=== PATIENT | female | born 1935 | race Caucasian/White ===

== ENCOUNTER → 2023-05-17 12:07 | Outpatient (REF) | payer MEDICARE, OTHER, SELFPAY | LOC: HWRAD 12:07 | PROVIDERS: ATTENDING PHYSICIAN Nurse Practitioner Family; FAMILY PHYSICIAN Internal Medicine | DX: Z12.31 Encounter for screening mammogram for malignant neoplasm of breast (principal); Z78.0 Asymptomatic menopausal state | CPT/HCPCS: 77063; 77067; 77080 ==

== ENCOUNTER → 2023-05-27 08:56 | Outpatient (REF) | payer MEDICARE, OTHER, SELFPAY | LOC: RAD 08:56 | PROVIDERS: ATTENDING PHYSICIAN Surgery Vascular Surgery; FAMILY PHYSICIAN Internal Medicine | DX: I71.40 Abdominal aortic aneurysm, without rupture, unspecified (principal) | CPT/HCPCS: 76770 ==

== ENCOUNTER → 2023-11-17 11:08 | Outpatient (REF) | payer MEDICARE, OTHER, SELFPAY | LOC: RAD 11:08 | PROVIDERS: ATTENDING PHYSICIAN Surgery Vascular Surgery; FAMILY PHYSICIAN Internal Medicine | DX: I71.40 Abdominal aortic aneurysm, without rupture, unspecified (principal) | CPT/HCPCS: 74174; Q9967 ==

== ENCOUNTER → 2024-01-25 12:44 | Outpatient (REF) | payer MEDICARE, OTHER, SELFPAY | LOC: RCS 12:44 | PROVIDERS: ATTENDING PHYSICIAN Physician Assistant Medical; FAMILY PHYSICIAN Internal Medicine | DX: R55 Syncope and collapse (principal); I35.0 Nonrheumatic aortic (valve) stenosis | CPT/HCPCS: 93306 ==

== ENCOUNTER 2024-04-24 02:25 | Emergency (ER) | payer MEDICARE, OTHER, SELFPAY ==
[2024-04-24] VITALS (12 sets, daily range): BP systolic 155–234; BP diastolic 74–107; BMI 25.5
[2024-04-24 02:58] LABS: % Basophils 0.7 % (0-2); % Eosinophils 2.4 % (0-6); % Immature Granulocytes 0.2 % (0-0.5); % Lymphocytes 31.6 % (20.5-51.1); % Monocytes 8.4 % (1.7-9.3); % Neutrophils 56.7 % (42.2-75.2); Absolute Eosinophils 0.1 10^3/uL (0-0.7); Absolute Lymphocytes 1.4 10^3/uL (1.2-3.4); Absolute Monocytes 0.4 10^3/uL (0.1-0.6); Absolute Neutrophils 2.6 10^3/uL (1.4-6.5); Hemoglobin 12.9 g/dL (12.0-16.0); Mean Corp Hgb Conc. 33.1 g/dL (33.0-37.0); Mean Corpuscular Hgb 30.1 pg (27.0-31.0); Mean Corpuscular Volume 91.1 fL (81.0-99.0); Mean Platelet Volume 10.6 fL (7.4-10.4); Nucleated Red Blood Cells % 0 %; Platelet Count 149 10^3/uL (130-400); Red Blood Cell Count 4.28 10^6/uL (4.20-5.40); Red Cell Dist. Width 13.6 % (11.5-14.5); White Blood Cell Count 4.5 10^3/uL (4.8-10.8)
[2024-04-24 03:17] LABS: Albumin 3.5 g/dl (3.5-5.0)
[2024-04-24 03:31] LABS: Troponin I < 0.012 ng/ml
[2024-04-24 03:47] LABS: ALT (SGPT) 33 U/L (0-35); AST (SGOT) 36 U/L (14-36); Alkaline Phosphatase 76 U/L (38-126); Blood Urea Nitrogen 25 mg/dl (7-17); Calcium 9.8 mg/dl (8.4-10.2); Carbon Dioxide 30 mmol/L (22-30); Chloride 102 mmol/L (98-107); Estimated Creatinine Clearance 35 ml/min; Glucose 150 mg/dl (70-99); Potassium 4.5 mmol/L (3.5-5.1); Sodium 138 mmol/L (135-145); Total Bilirubin 0.7 mg/dl (0.2-1.3); Total Protein 6.5 g/dl (6.3-8.2); eGFR > 60.00
--- NOTE | 2024-04-24 06:23 | ED.GENMED ---
History of Present Illness
General
Chief Complaint: Cardiac Symptoms
Source: patient, records and spouse
Exam Limitations: none
Time Seen by Provider: 04/24/24 06:02
Nursing documentation reviewed up to this point in time: agreed with
History of Present Illness
History of Present Illness:
Very pleasant 88-year-old female CAD, abdominal aneurysm repair, was on the phone with her grandson, felt some tunnel vision and then some pain under her sternum reminiscent of her ACS requiring stents in 2018, lasted just a minute or so no nausea
vomiting or diaphoresis felt a bit weak through the evening, now is feeling fine no abdominal pain no back pain no hematuria no dysuria, she did have a syncopal event in the past, seen at [facility], no alcohol her symptoms last night
did start after eating pizza
Past History
Past History
ED Past Medical History: Arrthythmia (Paroxysmal fibrillation), CAD, HTN and Other (CAD with stents)
ED Past Surgical History: Cardiac (PTCA with stent first OM June 2017.), Cholecystectomy, Orthopedic, Tonsilectomy and Other (AAA repair)
Social History
Tobacco: Non-smoker
Alcohol: None
Drug: None
Personal:
Living: with family
Employment: Retired
Family History
Family History: CAD (Mother and father with [place])
Review of Systems
Review of Systems
All Other Systems: Not applicable
Constitutional: Denies fever or fatigue
EENT: Reports no symptoms
Respiratory: Reports no symptoms
Cardiac: Reports chest pain
ABD/GI: Reports no symptoms
: Reports no symptoms
Musculoskeletal: Reports no symptoms
Skin: Reports no symptoms
Neurological: Reports no symptoms
Phy Exam
Physical Exam
Physical Exam:
Physical Exam
General: no apparent distress, not acutely ill
Neck: No jaundice
Heart: s1/s2 regular rate and rhythm, no murmur. equal radial pulses.
Lungs: no acute respiratory distress. clear bilaterally
Abdomen: nontender
Neuro: alert and oriented. no focal neurological deficits
Skin: no rash
Psychiatric: well kept. interactive and cooperative
Extremities: no edema. no calf tenderness
Scores
Heart Score for Chest Pain Patients
STEMI patient?: No
History: Slightly or Non-Suspicious
ECG: Normal
Age: >/= 65 years
Risk Factors: >/= 3 Risk Factors or History of CAD
Troponin: </= Normal Limit
Heart Score for Chest Pain Patients: 4
Heart Score Risk: 20.3% MACE over next 6 weeks
Course
Orders/Labs/Results
Orders:
Orders
04/24/24 02:30
Electrocardiogram (*1) Urgent
Reason for Study: Chest Pain
EKG- Treatment ONCE
04/24/24 02:49
Complete Blood Count/With Diff Urgent
Comprehensive Metabolic Panel Urgent
Lipase Urgent
Comment: ADD ON
Troponin I Urgent
04/24/24 06:21
Add On- LAB Urgent
Tests Added?: lipase
Electrocardiogram (*1) Urgent
Reason for Study: Shortness of Breath
EKG- Treatment ONCE
04/24/24 06:57
Troponin I Urgent
Abnormal Lab Results
04/24/24
02:49
WBC 4.5 L 10^3/uL
(4.8-10.8)
MPV 10.6 H fL
(7.4-10.4)
BUN 25 H mg/dl
(7-17)
Glucose 150 H mg/dl
(70-99)
Lipase 308 H U/L
(23-300)
04/24/24 02:49
04/24/24 02:49
Vital Signs
Initial and Last Documented VS:
Initial Vital Signs
Temp Pulse Resp BP Pulse Ox
97.8 F 74 20 215/107 98
04/24/24 02:26 04/24/24 02:26 04/24/24 02:26 04/24/24 02:26 04/24/24 02:26
Last Documented Vital Signs
Temp Pulse Resp BP Pulse Ox
97.8 F 75 12 165/92 93
04/24/24 02:26 04/24/24 05:30 04/24/24 05:30 04/24/24 05:30 04/24/24 05:30
MDM/Problems Addressed
Differential Diagnosis Includes:
ACS reflux pancreatitis anxiety arrhythmia
MDM/Problems Addressed:
Pain under her sternum
Chronic conditions affecting care: CAD and Previous abdomnial surgery
Acute Exacerbation and/or Progression of Chronic Illness: CAD and Previous abdomnial surgery
*Pulse Oximetry
Patient hypoxic: no
*EKG
Interpreted by ED Provider?: Yes
Interpretation: normal
Comparison EKG: no comparison EKG present
Heart Rate: 78
Rate: normal
Rhythm: sinus
Ischemia: no ischemia
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
Rate: normal
Interpretation: normal
Heart Rate: 78
Rhythm: sinus
*Critical Care Note
Total Time (30-74mins, 75-104mins- exclusive of procedures): Not Applicable
Update Note
Update Note:
750 2 AM-second troponin noted patient comfortable, lipase at top normal, do not believe this represents acute pancreatitis
ED Attending Note
-
Portions of this chart may have been created with voice recognition software.� Occasional wrong word or��sound alike� substitutions may have occurred due to the inherent limitations of voice recognition software.
Discharge Plan
Departure
Patient Disposition: Home (Routine Discharge)
Date of Disposition: 04/24/24
Time of Disposition: 07:53
Patient with high blood pressure during this ER visit?: No
Condition: Good
Discharge Problem:
Chest pain, Near syncope
Instructions: Chest Pain (DC), Near Fainting (DC), Chest Pain DCA Follow Up
Prescriptions:
No Action
latanoprost 1 DROP drops
1 drp RIGHT EYE HS
Patient Comments:
R eye
losartan 25 MG tablet
50 mg PO BID
brimonidine 1 DROP drops
1 drp RIGHT EYE BID
coenzyme Q10 50 MG tablet,chewable
100 mg PO DAILY
rivaroxaban [Xarelto] 20 MG tablet
15 mg PO QPM
Patient Comments:
with dinner
metoprolol tartrate 25 MG tablet
12.5 mg PO BID
aspirin 81 MG tablet,delayed release (DR/EC)
81 mg PO DAILY
vitamin B complex 1 TAB tablet
1 tab PO DAILY
nitroglycerin 0.4 MG tablet, sublingual
0.4 mg sublingual [id number] PRN (Reason: chest pain)
rosuvastatin 20 MG tablet
40 mg PO QPM
cholecalciferol (vitamin D3) 2,000 UNITS tablet
2,000 units PO DAILY
Referrals:
Barbara Ontiveros MD [Family Provider] -
Montana Britton MD [Active] - Next open appointment
Activity Restrictions/Additional Instructions:
[place] diet nothing fatty or spicy
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
Interventions
Interventions:
*Risk Screen - Suicide Last Done: 04/24/24 02:26
*Neglect/Abuse Screening Last Done: 04/24/24 02:26
ED- Pulmonary Assessment Last Done: 04/24/24 03:13
ED- Cardiac Assessment Last Done: 04/24/24 03:13
Discharge Date and Time
Print Language: THAI
[2024-04-24 06:53] LABS: Lipase 308 U/L (23-300)
[2024-04-24 07:31] LABS: Troponin I < 0.012 ng/ml
== END 2024-04-24 08:00 | disposition home or self-care (01) ==
LOC: EMR 02:25
PROVIDERS: Emergency Medicine; EMERGENCY PHYSICIAN Emergency Medicine; FAMILY PHYSICIAN Internal Medicine
DX: R55 Syncope and collapse (principal); R07.89 Other chest pain; I25.10 Atherosclerotic heart disease of native coronary artery without angina pectoris; I48.0 Paroxysmal atrial fibrillation; I10 Essential (primary) hypertension; E78.5 Hyperlipidemia, unspecified; M19.90 Unspecified osteoarthritis, unspecified site; M81.0 Age-related osteoporosis without current pathological fracture; H40.9 Unspecified glaucoma; Z79.01 Long term (current) use of anticoagulants; Z95.5 Presence of coronary angioplasty implant and graft; Z96.653 Presence of artificial knee joint, bilateral; Z85.828 Personal history of other malignant neoplasm of skin; Z87.01 Personal history of pneumonia (recurrent); Z86.16 Personal history of COVID-19; Z90.49 Acquired absence of other specified parts of digestive tract; Z88.1 Allergy status to other antibiotic agents; Z88.0 Allergy status to penicillin; Z88.2 Allergy status to sulfonamides; Z88.8 Allergy status to other drugs, medicaments and biological substances
CPT/HCPCS: 99284; 80053; 83690; 84484; 85025; 93005

== ENCOUNTER → 2024-06-05 09:35 | Outpatient (REF) | payer MEDICARE, OTHER, SELFPAY | LOC: HWRAD 09:35 | PROVIDERS: ATTENDING PHYSICIAN Surgery Vascular Surgery; FAMILY PHYSICIAN Internal Medicine | DX: I71.40 Abdominal aortic aneurysm, without rupture, unspecified (principal) | CPT/HCPCS: 74176 ==

== ENCOUNTER 2024-10-24 16:12 | Emergency (ER) | payer MEDICARE, OTHER, SELFPAY ==
[2024-10-24 16:16] VITALS: BP 166/91
[2024-10-24 16:32] LABS: Hematocrit 38.0 % (37.0-47.0); Hemoglobin 12.5 g/dL (12.0-16.0); Mean Corp Hgb Conc. 32.9 g/dL (33.0-37.0); Mean Corpuscular Volume 89.4 fL (81.0-99.0); Nucleated Red Blood Cells % 0 %; Platelet Count 156 10^3/uL (130-400); Red Cell Dist. Width 13.5 % (11.5-14.5)
[2024-10-24 16:51] LABS: ALT (SGPT) 28 U/L (0-35); AST (SGOT) 33 U/L (14-36); Albumin 3.7 g/dl (3.5-5.0); Alkaline Phosphatase 72 U/L (38-126); Blood Urea Nitrogen 23 mg/dl (7-17); Calcium 9.6 mg/dl (8.4-10.2); Carbon Dioxide 32 mmol/L (22-30); Chloride 102 mmol/L (98-107); Glucose 166 mg/dl (70-99); Potassium 4.6 mmol/L (3.5-5.1); Sodium 137 mmol/L (135-145); Total Protein 6.7 g/dl (6.3-8.2); eGFR > 60.00
[2024-10-24 16:57] LABS: Troponin I < 0.012 ng/ml
[2024-10-24 17:50] VITALS: BMI 24.7
--- NOTE | 2024-10-24 17:53 | ED.GENMED ---
History of Present Illness
General
Chief Complaint: Cardiac Symptoms
Source: patient
Exam Limitations: none
Time Seen by Provider: 10/24/24 17:36
Nursing documentation reviewed up to this point in time: agreed with
History of Present Illness
History of Present Illness:
89-year-old female with past medical history of hypertension hyperlipidemia, CAD status post stent (follows with Dr. Britton for cardiology) who presents to the emergency room with her for evaluation of chest discomfort. Patient reports a
vague suprasternal discomfort (she points essentially to her sternal notch) that was intermittent over the past few days but has been constant essentially all day today. She has not noticed any clear trigger for her symptoms�in fact she says that
she walked 2-1/2 miles today and did not have any change in her symptoms. She has not had any associated symptoms such as shortness of breath, nausea, vomiting. No recent illness. She says that she had similar vague discomfort in the throat/upper
chest prior to stent placement in 2018 and so she decided to come to the ER for assessment. She says she did try some nitroglycerin and she thinks had some transient relief but symptoms returned. Overall she describes symptoms as mild but was
mainly concerned that it could be her heart. She does admit that her diet has not been the healthiest recently.
Past History
Past History
ED Past Medical History: Arrthythmia (Paroxysmal fibrillation), CAD, HTN and Other (CAD with stents)
ED Past Surgical History: Cardiac (PTCA with stent first OM June 2017.), Cholecystectomy, Orthopedic, Tonsilectomy and Other (AAA repair)
Social History
Tobacco: Non-smoker
Alcohol: None
Drug: None
Personal:
Living: with family
Employment: Retired
Family History
Family History: CAD (Mother and father with [place])
Review of Systems
Review of Systems
All Other Systems: ROS reviewed and negative except as documented in HPI and ROS
Constitutional: Denies fever or chills
Respiratory: Denies cough or trouble breathing
Cardiac: Reports chest pain
ABD/GI: Denies abdominal pain, nausea or vomiting
: Denies flank pain
Musculoskeletal: Denies edema, neck pain or back pain
Neurological: Denies dizzy or headache
Phy Exam
Physical Exam
Physical Exam:
General: Awake, alert, oriented x3; no acute distress
Head: Normocephalic, atraumatic
Eyes: Conjunctiva normal, sclera anicteric
Throat: Airway intact, handling secretions
Neck: Trachea midline, supple without meningismus
Lungs: Clear to auscultation bilaterally, no wheezing, rales, rhonchi
Heart: Regular rate and rhythm, no murmurs, gallops, or rubs
Abd: Soft, non distended, nontender
Neuro: Grossly intact
Skin: No rash in area of concern
Extremities: No edema in extremities, equal pulses in all extremities
Scores
Heart Failure Risk
Heart Failure Risk Score: Not Applicable
Heart Score for Chest Pain Patients
STEMI patient?: Not applicable
Withdrawal Assessment of Alcohol
Withdrawal Assessment Completed?: Not applicable
Course
Orders/Labs/Results
Orders:
Orders
10/24/24 16:12
ECG [Electrocardiogram (*1)] Urgent
Reason for Study: Chest Pain
EKG- Treatment ONCE
10/24/24 16:24
Complete Blood Count/With Diff Urgent
Comprehensive Metabolic Panel Urgent
Troponin I Urgent
10/24/24 16:43
CR Chest - 2 Views Urgent
Comment:
Reason For Exam: chest pain
10/24/24 17:50
Mag Hydrox/Al Hydrox/Simeth [Maalox] 30 ml Phenobarb/Hyoscy/Atropine/Scop [] 10 ml Viscous Lidocaine 2% [Xylocaine Viscous Cup] 10 ml PO NOW
10/24/24 18:01
Mag Hydrox/Al Hydrox/Simeth [Maalox] 30 ml .ROUTE .STK-MED ONE
Phenobarb/Hyoscy/Atropine/Scop [] 10 ml .ROUTE .STK-MED ONE
Viscous Lidocaine 2% [Xylocaine Viscous Cup] 15 ml .ROUTE .STK-MED ONE
10/24/24 19:41
Troponin I Urgent
Abnormal Lab Results
10/24/24
16:24
WBC 4.0 L 10^3/uL
(4.8-10.8)
MCHC 32.9 L g/dL
(33.0-37.0)
Monocytes % 10.9 H %
(1.7-9.3)
Carbon Dioxide 32 H mmol/L
(22-30)
BUN 23 H mg/dl
(7-17)
Glucose 166 H mg/dl
(70-99)
10/24/24 16:24
10/24/24 16:24
Vital Signs
Initial and Last Documented VS:
Initial Vital Signs
Temp Pulse Resp BP Pulse Ox
36.7 C 76 20 166/91 98
10/24/24 16:16 10/24/24 16:16 10/24/24 16:16 10/24/24 16:16 10/24/24 16:16
Last Documented Vital Signs
Temp Pulse Resp BP Pulse Ox
36.7 C 72 24 166/91 97
10/24/24 16:16 10/24/24 18:24 10/24/24 18:24 10/24/24 16:16 10/24/24 18:26
MDM/Problems Addressed
Differential Diagnosis Includes:
ACS, GERD, anxiety, dysrhythmia
MDM/Problems Addressed:
89-year-old female with history as noted presents for evaluation of atypical chest/throat discomfort�she says that she had somewhat similar symptoms prior to stent in 2018 and was concerned it could be from her heart. Vitals were significant for
mild hypertension. Physical exam as above. EKG shows sinus rhythm with no acute ischemia no change from prior. She had lab work sent off including a CBC and a CMP which showed no clinically significant abnormalities. Initial troponin is
undetectable. Will check repeat troponin. Will check chest x-ray. Will monitor closely and reassess after the above�overall my clinical impression is that this is more likely GERD, very atypical for cardiac chest pain. Will trial green grabber.
Chest x-ray no acute disease. Repeat troponin pending. On clinical reassessment after green grabber patient reports resolution of symptoms she is feeling much better. Clinically suspect GERD, plan for discharge on PPI if repeat troponin negative.
She can follow-up with her primary doctor as an outpatient.
Repeat troponin undetectable. Patient remains well-appearing, asymptomatic on clinical reassessment. Stable for discharge will trial PPI follow-up with PCP as an outpatient. Patient very comfortable with this plan. All questions answered.
Chronic conditions affecting care:
CAD, hypertension, hyperlipidemia
Acute Exacerbation and/or Progression of Chronic Illness:
Acutely hypertensive
Acute Exacerbation and/or Progression of Chronic Illness: HTN
*Radiology
Radiology exam reviewed: preliminary read by ED provider
*Pulse Oximetry
SaO2: 98
Oxygen Mode of Delivery: Room air
Patient hypoxic: no (98%)
*EKG
Interpreted by ED Provider?: Yes
Comparison EKG: no changes
Heart Rate: 71
Rate: normal
Rhythm: sinus
Carmen: normal axis
Interval: normal interval
QRS Pattern: normal QRS
Ischemia: no ischemia (No significant change from prior)
*Critical Care Note
Total Time (30-74mins, 75-104mins- exclusive of procedures): Not Applicable
Data Reviewed
Source: patient, records and spouse
ED Attending Note
-
Portions of this chart may have been created with voice recognition software.� Occasional wrong word or��sound alike� substitutions may have occurred due to the inherent limitations of voice recognition software.
Discharge Plan
Departure
Patient Disposition: Home (Routine Discharge)
Date of Disposition: 10/24/24
Time of Disposition: 20:32
Patient with high blood pressure during this ER visit?: Yes
Discharge Problem:
Chest pain
Instructions: Chest Pain (DC), Acid reflux and GERD in adults - ED (DC)
Prescriptions:
New
pantoprazole 40 mg tablet,delayed release (DR/EC)
40 mg PO DAILY 14 Days Qty: 14 0RF
No Action
latanoprost 1 DROP drops
1 drp RIGHT EYE HS
Patient Comments:
R eye
losartan 25 MG tablet
50 mg PO BID
brimonidine 1 DROP drops
1 drp RIGHT EYE BID
coenzyme Q10 50 MG tablet,chewable
100 mg PO DAILY
rivaroxaban [Xarelto] 20 MG tablet
15 mg PO QPM
Patient Comments:
with dinner
metoprolol tartrate 25 MG tablet
12.5 mg PO BID
aspirin 81 MG tablet,delayed release (DR/EC)
81 mg PO DAILY
vitamin B complex 1 TAB tablet
1 tab PO DAILY
nitroglycerin 0.4 MG tablet, sublingual
0.4 mg sublingual [id number] PRN (Reason: chest pain)
rosuvastatin 20 MG tablet
40 mg PO QPM
cholecalciferol (vitamin D3) 2,000 UNITS tablet
2,000 units PO DAILY
Referrals:
Barbara Ontiveros MD [Family Provider, Internal Medicine] - Call in 1-3 days for appt
Activity Restrictions/Additional Instructions:
Thank you for visiting the Emergency Department at [facility].
1. Please schedule a follow up appointment as directed. Call first thing tomorrow morning to make an appointment.
2. If indicated, please take your medications as instructed and indicated on discharge paperwork.
3. If any of your symptoms do not improve, or persist, or become more severe within 6-12 hours, please return to the emergency department for further care.
4. Please return to the emergency department if you develop a headache, neck pain/stiffness, fever greater than 100.4F, chest pain, shortness of breath, persistent nausea, vomiting, slurred speech, difficulty walking, numbness/tingling, weakness,
signs of infection or any other symptoms that are worrisome to you.
Please call [phone] if you have any questions.
Interventions
Interventions:
*Risk Screen - Suicide Last Done: 10/24/24 17:51
*General Assessment Last Done: 10/24/24 16:16
*Neglect/Abuse Screening Last Done: 10/24/24 17:51
*ED- Fall Risk Assessment Last Done: 10/24/24 17:51
*ED COVID-19 Vaccine History Last Done: 10/24/24 17:51
ED- Pulmonary Assessment Last Done: 10/24/24 18:26
ED- Cardiac Assessment Last Done: 10/24/24 18:26
Discharge Date and Time
Print Language: LEBANESE
[2024-10-24] MEDS: MAALOX 50 PO (18:02)
[2024-10-24 19:26] VITALS: BP 171/76
[2024-10-24 19:47] VITALS: BP 166/138
[2024-10-24 20:00] VITALS: BP 162/86
[2024-10-24 20:22] LABS: Troponin I < 0.012 ng/ml
== END 2024-10-24 20:36 | disposition home or self-care (01) ==
LOC: EMR 16:12
PROVIDERS: EMERGENCY PHYSICIAN Emergency Medicine; FAMILY PHYSICIAN Internal Medicine
DX: R07.89 Other chest pain (principal); I10 Essential (primary) hypertension; E78.5 Hyperlipidemia, unspecified; I25.10 Atherosclerotic heart disease of native coronary artery without angina pectoris; Z95.5 Presence of coronary angioplasty implant and graft; Z90.49 Acquired absence of other specified parts of digestive tract
CPT/HCPCS: 99285; 71046; 80053; 84484; 85025; 93005